=== PATIENT | female | born 1975 | race Caucasian/White ===

== ENCOUNTER 2018-07-16 08:37 | Emergency (ER) | payer BC, SELFPAY ==
[2018-07-16 09:18] LABS: Absolute Lymphocytes (CBC) 0.4 K/uL (0.7-4.9); Absolute Monocytes 0.7 K/uL (0.1-1.3); Absolute Neutrophil 22.3 K/uL (1.8-8.0); Basophils % 0.7 % (0-1.3); Hematocrit 50.6 % (36.0-45.0); Lymphocytes % 1.6 % (15.3-44.8); MPV 9.9 fL (7.6-11.3); Monocytes % 3.2 % (3.3-12.3); RBC Red Blood Cell Count 4.84 M/uL (3.86-4.86)
[2018-07-16 09:36] LABS: ALT/SGPT 30 U/L (12-78); AST/SGOT 32 U/L (15-37); Albumin 3.3 g/dL (3.4-5.0); Alkaline Phosphatase 74 U/L (45-117); BUN Blood Urea Nitrogen 5 mg/dL (7-18); Bicarbonate 23 mmol/L (21-32); Bilirubin Direct 0.2 mg/dL (0-0.2); Bilirubin Total 1.3 mg/dL (0.2-1.0); Glucose Level 106 mg/dL (74-106); Lipase 4517 U/L (73-393); Potassium 3.8 mmol/L (3.5-5.1); Protein, Total 7.9 g/dL (6.4-8.2); Sodium Level 138 mmol/L (136-145)
[2018-07-16 09:49] LABS: Urine Blood TRACE (NEG); Urine Glucose TRACE (NEG); Urine Protein 2+ (NEG); Urine Specific Gravity >1.030 (1.005-1.030)
[2018-07-16 09:49] LABS: Blood Morphology Comment NOT SEEN (NOT SEEN); Platelet Estimate ADEQ
--- NOTE | 2018-07-16 10:18 | RAD REPORT ---
EXAM DESCRIPTION: CT - Abdomen Pelvis W Contrast - 07/16/2018 10:04 am CLINICAL HISTORY: Abdominal pain with vomiting COMPARISON: none. TECHNIQUE: Computed axial tomography of the abdomen pelvis was obtained. 100 cc Isovue-300 was admin istered intravenously. Oral contrast was not requested which limits evaluation of bowel. All CT scans are performed using dose optimization technique as appropriate and may include automated exposure control or mA/KV adjustment according to patient size. FINDINGS: Fatty liver Pancreas is enlarged and inhomogeneous with moderate stranding within the peripancreatic fat. Strandi ng is also present within the greater omentum. 33 millimeter low-density mass within the pancreatic h ead. Cholecystectomy. Postsurgical changes involve the stomach There is no evidence of diverticulitis. Normal appendix. Small amount of ascites IMPRESSION: Pancreatitis. A 3.3 centimeter low-density mass within the pancreatic head likely represents a pseudocyst. Followup ultrasound in a couple weeks would be helpful to assess stability/resolution.
--- NOTE | 2018-07-16 10:52 | ER ---
Nurse's Notes [facility] Name: Ava Lacy Age: 43 yrs Sex: Female : 1975 Arrival Date: 07/16/2018 Time: 08:40 Bed 6 Private MD: Diagnosis: Acute pancreatitis;Pseudocyst of pancreas Presentation: 07/16 08:50 Presenting complaint: Patient states: mid abd pain, n/v/d x 2 days. Transition of care: sv patient was not received from another setting of care. Onset of symptoms was July 14, 2018. Risk Assessment: Do you want to hurt yourself or someone else? Patient reports no desire to harm self or others. Initial Sepsis Screen: Does the patient meet any 2 criteria? No. Patient's initial sepsis screen is negative. Does the patient have a suspected source of infection? No. Patient's initial sepsis screen is negative. Care prior to arrival: None. 08:50 Method Of Arrival: Ambulatory sv 08:50 Acuity: KASH 3 sv Triage Assessment: 08:55 General: Appears in no apparent distress. comfortable, obese, Behavior is cooperative, bp appropriate for age, anxious. Pain: Complains of pain in right lower quadrant, left lower quadrant and abdomen diffusely. EENT: No deficits noted. Neuro: Level of Consciousness is awake, alert, obeys commands, Oriented to person, place, time, situation, Appropriate for age. Cardiovascular: No deficits noted. Rhythm is sinus rhythm. Respiratory: Airway is patent Respiratory effort is even, unlabored, Respiratory pattern is regular, symmetrical. GI: Abdomen is non-distended, obese, Bowel sounds present X 4 quads. Abd is soft X 4 quads Abdomen is tender to palpation in right lower quadrant and left lower quadrant. : No signs and/or symptoms were reported regarding the genitourinary system. Derm: No deficits noted. Musculoskeletal: Circulation, motion, and sensation intact. Range of motion: intact in all extremities. Historical: - Allergies: 08:53 No Known Allergies; sv - PMHx: 10:41 None; la1 - PSHx: 08:53 Cholecystectomy; gastric sleeve; ; sv - Immunization history:: Adult Immunizations up to date. - Social history:: Smoking status: Patient uses tobacco products, smokes two packs cigarettes per day. Patient uses alcohol, on a daily basis. 12 beers daily and 3 schnapps daily. - Ebola Screening: : No symptoms or risks identified at this time. Screenin:54 Abuse screen: Denies threats or abuse. Denies injuries from another. Nutritional sv screening: No deficits noted. Tuberculosis screening: No symptoms or risk factors identified. Fall Risk None identified. Assessment: 08:59 General: SEE TRIAGE NOTE. bp 10:10 Reassessment: Patient appears in no apparent distress at this time. No changes from la1 previously documented assessment. Patient and/or family updated on plan of care and expected duration. Pain level reassessed. Patient is alert, oriented x 3, equal unlabored respirations, skin warm/dry/pink. 11:30 Reassessment: Patient appears in no apparent distress at this time. No changes from la1 previously documented assessment. Patient and/or family updated on plan of care and expected duration. Pain level reassessed. Patient is alert, oriented x 3, equal unlabored respirations, skin warm/dry/pink. 12:53 Reassessment: Patient appears in no apparent distress at this time. No changes from la1 previously documented assessment. Patient and/or family updated on plan of care and expected duration. Pain level reassessed. Vital Signs: 08:53 BP 127 / 83; Pulse 84; Resp 16; Temp 97.5(TE); Pulse Ox 98% on R/A; Weight 77.11 kg; sv Height 4 ft. 11 in. (149.86 cm); Pain 4/10; 10:52 BP 132 / 73; Pulse 74; Resp 16; Pulse Ox 98% on R/A; la1 11:54 BP 137 / 76; Pulse 84; Resp 16; Pulse Ox 98% on R/A; la1 08:53 Body Mass Index 34.34 (77.11 kg, 149.86 cm) sv ED Course: 08:40 Patient arrived in ED. tw3 08:42 [facility] nh 08:42 Farooq Perez MD is Attending Physician. nh 08:42 Kike Vicente, BEE is Primary Nurse. bp 08:51 Triage completed. sv 08:54 Arm band placed on. sv 08:54 Patient has correct armband on for positive identification. Bed in low position. Call sv light in reach. Adult w/ patient. Pulse ox on. NIBP on. Door closed. Head of bed elevated. 08:56 Inserted saline lock: 20 gauge in right forearm, using aseptic technique. Blood bp collected. 08:57 Radiology exam delayed due to lab results not completed at this time. (BUN/Creatinine) mw3 test not completed at this time. 09:00 Urine collected: clean catch specimen, vickie colored. kj1 09:21 Radiology exam delayed due to lab results not completed at this time. (BUN/Creatinine). mw3 09:26 Notified ED physician of a critical lab result(s). WBC 23.6. ss 10:01 CT completed. Patient tolerated procedure well. Patient moved back from CT. bq 10:03 CT Abd/Pelvis - W/Contrast In Process Unspecified. EDMS 10:41 Inserted saline lock: 20 gauge in left wrist, using aseptic technique. la1 12:53 No provider procedures requiring assistance completed. Patient admitted, IV remains in la1 place. Administered Medications: 10:52 Drug: NS 0.9% 1000 ml Route: IV; Rate: 1000 ml; Site: right forearm; la1 11:55 Follow up: IV Status: Completed infusion la1 11:08 Drug: Cipro 400 mg Volume: 200 ml; Route: IVPB; Infused Over: 60 mins; Site: right la1 antecubital; 11:55 Follow up: IV Status: Completed infusion la1 11:20 Drug: Flagyl 500 mg Volume: 100 ml; Route: IVPB; Rate: 200 ml/hr; Infused Over: 30 la1 mins; Site: left forearm; 12:27 Follow up: IV Status: Completed infusion la1 12:36 Drug: morphine 4 mg Route: IVP; Site: right antecubital; la1 12:36 Follow up: Response: Medication administered at discharge. la1 12:36 Drug: Zofran 4 mg Route: IVP; Site: right antecubital; la1 12:36 Follow up: Response: Medication administered at discharge. la1 Outcome: 10:51 ER care complete, transfer ordered by MD. pickens 12:53 Transferred by ground EMS to [facility], Transfer form completed. la1 X-rays sent w/ patient. 12:53 Condition: stable 12:53 Instructed on the need for transfer. 12:54 Patient left the ED. la1 Signatures: Dispatcher [employer] Abbie Ornelas, RN RN sv Allison, Jocelyne, OPHTHALMIC MEDICAL ASSISTANT OPHTHALMIC MEDICAL ASSISTANT [place] Damaris Machado Sowmya Jaimes RN RN ss Santos Franco RN RN la1 Cyrus, Deborah 3 Kike Vicente RN RN Nubia Boudreaux 3 Arben, Lupis kj1
--- NOTE | 2018-07-16 10:52 | EDPHYS ---
Physician Documentation [facility] Name: Ava Lacy Age: 43 yrs Sex: Female : 1975 Arrival Date: 07/16/2018 Time: 08:40 Bed 6 Private MD: Farooq Carias HPI: 07/16 10:49 This 43 yrs old Female presents to ER via Ambulatory with complaints of nh Abdominal Pain, Vomiting. 10:49 The patient presents with abdominal pain in the epigastric area. Onset: The nh symptoms/episode began/occurred yesterday. The symptoms do not radiate. Associated signs and symptoms: Pertinent positives: nausea and vomiting. The symptoms are described as constant, sharp. Modifying factors: The symptoms are alleviated by nothing, the symptoms are aggravated by drinking, food. The patient has not experienced similar symptoms in the past. The patient has not recently seen a physician. Patient reports being a heavy drinker. Historical: - Allergies: 08:53 No Known Allergies; sv - PMHx: 10:41 None; la1 - PSHx: 08:53 Cholecystectomy; gastric sleeve; ; sv - Immunization history:: Adult Immunizations up to date. - Social history:: Smoking status: Patient uses tobacco products, smokes two packs cigarettes per day. Patient uses alcohol, on a daily basis. 12 beers daily and 3 schnapps daily. - Ebola Screening: : No symptoms or risks identified at this time. ROS: 10:49 Constitutional: Negative for fever, chills, and weight loss, Eyes: Negative for injury, nh pain, redness, and discharge, ENT: Negative for injury, pain, and discharge, Neck: Negative for injury, pain, and swelling, Cardiovascular: Negative for chest pain, palpitations, and edema, Respiratory: Negative for shortness of breath, cough, wheezing, and pleuritic chest pain, Back: Negative for injury and pain, : Negative for injury, bleeding, discharge, and swelling, MS/Extremity: Negative for injury and deformity, Skin: Negative for injury, rash, and discoloration, Neuro: Negative for headache, weakness, numbness, tingling, and seizure. 10:49 Abdomen/GI: Positive for abdominal pain, nausea and vomiting, Negative for diarrhea, constipation. Exam: 10:49 Constitutional: This is a well developed, well nourished patient who is awake, alert, nh and in no acute distress. Head/Face: Normocephalic, atraumatic. Eyes: Pupils equal round and reactive to light, extra-ocular motions intact. Lids and lashes normal. Conjunctiva and sclera are non-icteric and not injected. Cornea within normal limits. Periorbital areas with no swelling, redness, or edema. ENT: Nares patent. No nasal discharge, no septal abnormalities noted. Tympanic membranes are normal and external auditory canals are clear. Oropharynx with no redness, swelling, or masses, exudates, or evidence of obstruction, uvula midline. Mucous membranes moist. Neck: Trachea midline, no thyromegaly or masses palpated, and no cervical lymphadenopathy. Supple, full range of motion without nuchal rigidity, or vertebral point tenderness. No Meningismus. Chest/axilla: Normal chest wall appearance and motion. Nontender with no deformity. No lesions are appreciated. Cardiovascular: Regular rate and rhythm with a normal S1 and S2. No gallops, murmurs, or rubs. Normal PMI, no JVD. No pulse deficits. Respiratory: Lungs have equal breath sounds bilaterally, clear to auscultation and percussion. No rales, rhonchi or wheezes noted. No increased work of breathing, no retractions or nasal flaring. Back: No spinal tenderness. No costovertebral tenderness. Full range of motion. Skin: Warm, dry with normal turgor. Normal color with no rashes, no lesions, and no evidence of cellulitis. MS/ Extremity: Pulses equal, no cyanosis. Neurovascular intact. Full, normal range of motion. Neuro: Awake and alert, GCS 15, oriented to person, place, time, and situation. Cranial nerves II-XII grossly intact. Motor strength 5/5 in all extremities. Sensory grossly intact. Cerebellar exam normal. Normal gait. 10:49 Abdomen/GI: Inspection: distension, that is mild, Bowel sounds: normal, Palpation: mild abdominal tenderness, in all quadrants. Vital Signs: 08:53 BP 127 / 83; Pulse 84; Resp 16; Temp 97.5(TE); Pulse Ox 98% on R/A; Weight 77.11 kg; sv Height 4 ft. 11 in. (149.86 cm); Pain 4/10; 10:52 BP 132 / 73; Pulse 74; Resp 16; Pulse Ox 98% on R/A; la1 11:54 BP 137 / 76; Pulse 84; Resp 16; Pulse Ox 98% on R/A; la1 08:53 Body Mass Index 34.34 (77.11 kg, 149.86 cm) sv MDM: 08:[address] 10:49 Data reviewed: vital signs, nurses notes, lab test result(s), radiologic studies, I nh have discussed the patient's presentation/case with the attending Emergency Department Physician; and as a result, I will admit patient. Counseling: I had a detailed discussion with the patient and/or guardian regarding: the historical points, exam findings, and any diagnostic results supporting the discharge/admit diagnosis, lab results, radiology results, the need to transfer to another facility. 07/16 08:49 Order name: Basic Metabolic Panel; Complete Time: 10:03 ct 07/16 08:49 Order name: CBC with Diff; Complete Time: 10:03 ct 07/16 08:49 Order name: Creatinine for Radiology; Complete Time: 09:36 ct 07/16 08:49 Order name: Hepatic Function; Complete Time: 10:03 ct 07/16 08:49 Order name: Lipase; Complete Time: 10:03 ct 07/16 09:02 Order name: Urine Dipstick--Ancillary (enter results); Complete Time: 10:03 07/16 08:49 Order name: CT Abd/Pelvis - W/Contrast; Complete Time: 10:18 ct 07/16 09:02 Order name: Urine --Ancillary (enter results) 07/16 09:50 Order name: Manual Differential; Complete Time: 10:03 EDMS 07/16 10:03 Order name: Blood Culture Adult (2) ct 07/16 08:49 Order name: IV Saline Lock; Complete Time: 08:54 ct 07/16 08:49 Order name: Labs collected and sent; Complete Time: 08:54 ct Administered Medications: 10:52 Drug: NS 0.9% 1000 ml Route: IV; Rate: 1000 ml; Site: right forearm; la1 11:55 Follow up: IV Status: Completed infusion la1 11:08 Drug: Cipro 400 mg Volume: 200 ml; Route: IVPB; Infused Over: 60 mins; Site: right la1 antecubital; 11:55 Follow up: IV Status: Completed infusion la1 11:20 Drug: Flagyl 500 mg Volume: 100 ml; Route: IVPB; Rate: 200 ml/hr; Infused Over: 30 la1 mins; Site: left forearm; 12:27 Follow up: IV Status: Completed infusion la1 12:36 Drug: morphine 4 mg Route: IVP; Site: right antecubital; la1 12:36 Follow up: Response: Medication administered at discharge. la1 12:36 Drug: Zofran 4 mg Route: IVP; Site: right antecubital; la1 12:36 Follow up: Response: Medication administered at discharge. la1 Disposition: 07/17 07:42 Co-signature as Attending Physician, Farooq Perez MD I agree with the assessment and alejandro plan of care. Disposition: 07/16/18 10:51 Transfer ordered to [facility]. Diagnosis are Acute pancreatitis, Pseudocyst of pancreas. - Reason for transfer: Higher level of care. - Accepting physician is [facility]. - Condition is Stable. - Problem is new. - Symptoms are unchanged. Signatures: Dispatcher [employer] Abbie Ornelas, RN Farooq Lawson MD MD cha Cronk, Niki, FLY RAIL OPERATOR FLY RAIL OPERATOR Santos Coppola RN RN la1 Corrections: (The following items were deleted from the chart) 07/16 12:54 10:51 07/16/2018 10:51 Transfer ordered to [facility]. Diagnosis is la1 Acute pancreatitis; Pseudocyst of pancreas. Reason for transfer: Higher level of care. Accepting physician is [facility]. Condition is Stable. Problem is new. Symptoms are unchanged. nh
[2018-07-16] MEDS ORDERED: CIPROFLOXACIN 400mg IV 400 MG/200 ML BAG IV ONE (10:59)
[2018-07-16] MEDS ORDERED: METRONIDAZOLE 500mg IVPB 500 MG/100 ML BAG IV ONE (11:00)
[2018-07-16] MEDS ORDERED: NA CHLORIDE 0.9% 1,000 ML ONE (11:00)
[2018-07-16] MEDS ORDERED: MORPHINE 4 MG/ML SYR ONE (12:47)
[2018-07-16] MEDS ORDERED: ONDANSETRON 4 MG/2 ML VIAL ONE (12:47)
== END 2018-07-16 12:54 | disposition short-term general hospital (02) ==
LOC: ER 08:37
DX: K85.90 Acute pancreatitis without necrosis or infection, unspecified (principal); K86.3 Pseudocyst of pancreas; F17.210 Nicotine dependence, cigarettes, uncomplicated
CPT/HCPCS: 36415; 74177; 80048; 80076; 81003; 81025; 83690; 85025; 87040; 99285; J0744; J2405; J7030; Q9967